=== PATIENT | female | born 1940 | race Caucasian/White ===

== ENCOUNTER 2016-08-05 22:57 | Emergency (ER) | payer MEDICARE, MEDICAID ==
[~2016-08-05] VITALS: Ht 162.6 cm; Wt 72.1 kg
[2016-08-05] MEDS ORDERED: MICARDIS20 MG ORAL (23:10)
[2016-08-06] MEDS ORDERED: Ketamine HCl 100mg syr IV ONE (01:15)
[2016-08-06 01:30] VITALS: BP 185/87
[2016-08-06 01:32] VITALS: BP 184/98
[2016-08-06 01:56] VITALS: BP 180/104
--- NOTE | 2016-08-06 01:57 | Emergency Room Report ---
History of Present Illness General Chief Complaint: Upper Extremity Injury Source: Patient Present Illness HPI 76 YO F with left wrist pain/deformity after fall at home. Allergies: Coded Allergies: TETRACYCLINE (Verified Allergy, Unknown, 08/05/16) Nursing Documentation-[facility] Hx Hypertension: Yes Review of Systems All Other Systems: negative except mentioned in HPI Physical Exam Vital Signs Date Time Temp Pulse Resp B/P Pulse Ox O2 Delivery O2 Flow Rate FiO2 08/05/16 23:04 97.5 87 16 175/97 96 Room Air 08/06/16 01:32 2.0 Procedures Joint Reduction Joint Reduction : Consent: Written Joint Reduction Site: wrist (L) Procedural Sedation: Yes Reduction Attempts: One Pre-Procedure NV Exam: Yes Post-Procedure NV Exam: Yes Post Joint Reduction Film: joint reduced Patient Tolerated: Well Complications: None Procedural Sedation Consent: Written Pre-Sedation Assessment: Elective, Eval. Immed. Prior to Sed, Pre-proc Edu. done, Plan for Sedation Discuss Airway Assessment (Malampati): I Heart: normal Lungs: normal Abdomen: normal Extremities: normal Procedures/Plans: Closed Reduction Plan for Moderate Sedation: Other - ketamine ASA Score: I Start Time: 01:37 End Time: 01:41 Total Time: 3 Communication: No Apparent Limitation Mental Status: Awake Respiration: Unlabored Skin Condition: WNL Abdomen: WNL Nausea: NO Vomiting: NO Medical Decision Making Diagnostic Impression: Primary Impression: Left radial fracture Qualified Codes: S52.122A - Displaced fracture of head of left radius, initial encounter for closed fracture ER Course S/p reduction of left distal radius fracture (see procedure note) under conscious sedation DC home with grand-daughter when awake Advised to follow up with Ortho in 1 week Patient only requested Ibuprofen/Tylenol for pain in ED - I offered narcotics but patient refused DC home Other X-Ray Diagnostic Results Other X-Ray Diagnostic Results : X-Ray Ordered: Left wrist Findings: other - S/p reduction with improvement in dislocation. Splint applied Number of Views: 3 Last Vital Signs Date Time Temp Pulse Resp B/P Pulse Ox O2 Delivery O2 Flow Rate FiO2 08/06/16 01:32 97.1 124 20 97 Nasal Cannula 2.0 96 08/05/16 23:04 175/97 Status: improved Disposition: HOME, SELF-CARE Scripts Acetaminophen (Tylenol) 325 Mg Tablet 650 MG ORAL Q6H Y for Prn Pain/Headache/Temp > 101, #30 TAB 0 Refills Prov: SILVESTRE MCGREGOR M.D. 08/06/16 Referrals: NON PHYSICIAN (PCP) SILVESTRE MCGREGOR M.D. Aug 06, 2016 01:57
[2016-08-06] MEDS ORDERED: TYLENOL325 MG ORAL (01:59)
[2016-08-06 02:11] VITALS: BP 151/80
[2016-08-06 02:26] VITALS: BP 140/84
[2016-08-06 03:17] VITALS: BP 140/84
--- NOTE | 2016-08-06 12:15 | Diagnostic Imaging Report ---
Indications: PAIN Technique: Two views of the left forearm Comparison: None Findings: There is a fracture of the distal radius. No shaft fracture demonstrated. No radiopaque foreign Impression: Positive for distal radial fracture, better visualized on wrist radiograph performed at same time
--- NOTE | 2016-08-06 12:17 | Diagnostic Imaging Report ---
Clinical Indication:PAIN Technique: 3 views of the left wrist Comparison: None Findings: There is a posteriorly angulated and posteriorly displaced comminuted impacted overriding fracture of the distal radius, which probably involves the articular surface. There is equivocally associated ulnar styloid fracture. No carpal fracture demonstrated. The bones are osteoporotic Impression: Positive for distal radial fracture, as described. Possible associated ulnar styloid fracture. This agrees with the preliminary interpretation provided overnight by [facility] service.
--- NOTE | 2016-08-06 12:26 | Diagnostic Imaging Report ---
Indication: PAIN Technique: 2 views of the left wrist Comparison: 2 hours earlier Findings: Interim reduction of previously demonstrated distal radial fracture. Overlying plaster splint obscures bony detail. Impression: Reduced distal radial fracture in plaster splint
== END 2016-08-06 03:18 | disposition home or self-care (01) ==
LOC: EMR 23:27
DX: S52.592A Other fractures of lower end of left radius, initial encounter for closed fracture (principal); W19.XXXA Unspecified fall, initial encounter; Y92.009 Unspecified place in unspecified non-institutional (private) residence as the place of occurrence of the external cause; I10 Essential (primary) hypertension; Z88.1 Allergy status to other antibiotic agents
CPT/HCPCS: 25605; 73090; 73100; 73110; 96374; 99284; J2405